=== PATIENT | male | born 1970 | race Caucasian/White ===

== ENCOUNTER 2022-02-16 04:09 | Emergency (ER) | payer OTHER, SELFPAY ==
[2022-02-16] MEDS ORDERED: diphenhydrAMINE 25 MG CAP ONE (04:43)
[2022-02-16] MEDS ORDERED: methylPREDNISolone Sod Succ/PF 125 MG/2 ML VIAL ONE (04:58)
[2022-02-16] MEDS ORDERED: EPINEPHrine 1 MG/ML AMP ONE (05:17)
[2022-02-16 06:11] LABS: #Basophils 0.1 10x3/uL (0.0-0.2); #Eosinphils 0.1 10x3/uL (0.0-0.5); #Monocytes 0.8 10x3/uL (0.0-1.1); #Neutrophils 12.5 10x3/uL (1.5-8.4); %Basophils 0.3 % (0.0-2.0); %Eosinophils 0.4 % (0.0-6.0); %Lymphocytes 18.3 % (18.0-47.0); %Monocytes 5.1 % (0.0-10.0); %Neutrophils 75.5 % (40.0-75.0); Mean Corpuscular HGB CONC 34.5 g/dL (32.0-36.0); Mean Corpuscular Hemoglobin 31.1 pg (27.0-33.0); Mean Corpuscular Volume 90.1 fl (81.2-95.1); Mean Platelet Volume 9.8 fl (7.4-10.4); RBC Distribution Width 12.2 % (11.5-14.5); Red Blood Cell (RBC) Count 4.83 10x6/uL (4.32-5.72); White Blood Cell (WBC) Count 16.5 10x3/uL (3.5-10.5)
[2022-02-16 06:15] LABS: Platelet Count 234 10x3/uL (150-450)
[2022-02-16 06:23] LABS: ALT (SGPT) 125 U/L (8-55); AST (SGOT) 163 U/L (5-34); Albumin 4.3 g/dL (3.5-5.0); Alkaline Phosphatase 73 U/L (40-110); Anion Gap 17 mmol/L (10-20); BUN (Urea Nitrogen) 20 mg/dL (8.4-25.7); Calc. Creatinine Clearance 0 mL/min (70-130); Calcium 9.2 mg/dL (7.8-10.44); Carbon Dioxide 22 mmol/L (22-29); Chloride 104 mmol/L (98-107); Glucose 121 mg/dL (70-105); Lipase 33 U/L (8-78); Potassium 4.1 mmol/L (3.5-5.1); Protein, Total 6.3 g/dL (6.0-8.3); Sodium 139 mmol/L (136-145)
[2022-02-16] MEDS ORDERED: Morphine 4 MG/ML VIAL ONE (06:35)
== END 2022-02-16 07:50 | disposition home or self-care (01) ==
LOC: CSHERS 04:09
DX: R10.13 Epigastric pain (principal); T78.40XA Allergy, unspecified, initial encounter; R59.0 Localized enlarged lymph nodes; R79.89 Other specified abnormal findings of blood chemistry; I10 Essential (primary) hypertension; Z79.01 Long term (current) use of anticoagulants; Z79.899 Other long term (current) drug therapy; Z86.718 Personal history of other venous thrombosis and embolism; Z86.711 Personal history of pulmonary embolism
CPT/HCPCS: 71045; 71275; 74177; 80053; 83690; 84484; 85025; 93005; 94760; 96372; 96374; 96375; J0171; J2270; J2930

== ENCOUNTER 2022-06-19 07:32 | Outpatient (CLI) | payer OTHER ==
[2022-06-19] MEDS ORDERED: PROPOFOL 40 ML ONE (11:57)
[2022-06-19] MEDS ORDERED: PROPOFOL 20 ML ONE (12:20)
== END 2022-06-19 07:33 | disposition home or self-care (01) ==
LOC: CSHULT 07:32
PROVIDERS: ATTEND Internal Medicine Gastroenterology
DX: R10.9 Unspecified abdominal pain (principal); K80.20 Calculus of gallbladder without cholecystitis without obstruction; K76.0 Fatty (change of) liver, not elsewhere classified
CPT/HCPCS: 76700; J2704

== ENCOUNTER 2022-06-19 08:46 | Day surgery (SDC) | payer OTHER ==
[2022-06-15 13:17] VITALS: BMI 40.8
== END 2022-06-19 13:10 | disposition home or self-care (01) ==
LOC: CSHSDC 08:46
PROVIDERS: ATTEND Internal Medicine Gastroenterology
DX: D12.3 Benign neoplasm of transverse colon (principal); D12.4 Benign neoplasm of descending colon; K63.5 Polyp of colon; K64.9 Unspecified hemorrhoids; K21.9 Gastro-esophageal reflux disease without esophagitis; I10 Essential (primary) hypertension; E66.9 Obesity, unspecified; Z68.41 Body mass index [BMI] 40.0-44.9, adult; Z86.718 Personal history of other venous thrombosis and embolism; Z87.891 Personal history of nicotine dependence; Z90.49 Acquired absence of other specified parts of digestive tract; Z88.8 Allergy status to other drugs, medicaments and biological substances; Z79.01 Long term (current) use of anticoagulants; Z79.899 Other long term (current) drug therapy
CPT/HCPCS: 88305

== ENCOUNTER 2022-07-20 09:56 | Outpatient (CLI) | payer OTHER ==
[2022-07-20] MEDS ORDERED: Iopamidol 300 61% 100 ML VIAL FS ONE (14:14)
== END 2022-07-20 09:57 | disposition home or self-care (01) ==
LOC: CSHCT 09:56
PROVIDERS: ATTEND Specialist
DX: R10.30 Lower abdominal pain, unspecified (principal); R19.04 Left lower quadrant abdominal swelling, mass and lump
CPT/HCPCS: 72193; Q9967

== ENCOUNTER 2024-07-01 16:00 | Outpatient (CLI) | payer OTHER | END 2024-07-01 16:01 | disposition home or self-care (01) | LOC: CSHSLEEP 16:00 | PROVIDERS: ATTEND Nurse Practitioner Family | DX: G47.33 Obstructive sleep apnea (adult) (pediatric) (principal); G47.10 Hypersomnia, unspecified; G47.9 Sleep disorder, unspecified; R53.83 Other fatigue; R41.9 Unspecified symptoms and signs involving cognitive functions and awareness; E66.9 Obesity, unspecified; Z68.41 Body mass index [BMI] 40.0-44.9, adult; R06.83 Snoring; I10 Essential (primary) hypertension | CPT/HCPCS: 95800 ==

== ENCOUNTER 2024-11-03 12:23 | Outpatient (CLI) | payer OTHER ==
[~2024-11-03 12:23] MED LIST: Iopamidol 370 76% 100 ML VIAL ONE
== END 2024-11-03 12:24 | disposition home or self-care (01) ==
LOC: CSHCT 12:23
PROVIDERS: ATTEND Surgery
DX: I87.1 Compression of vein (principal); R91.8 Other nonspecific abnormal finding of lung field; R59.0 Localized enlarged lymph nodes
CPT/HCPCS: 74178